=== PATIENT | female | born 1995 | race Caucasian/White ===

== ENCOUNTER 2019-12-17 22:03 | Emergency (ER) | payer MEDICAID ==
[~2019-12-17] VITALS: Ht 172.7 cm; Wt 77.1 kg
--- NOTE | 2019-12-17 22:05 | NUR ---
PT HERE C/O ALLERGIC REACTION TO MANY THINGS, C/O HIVES IN HER CHEST AND BODY PARTS HX- ALLERGIC TO CATS, DOGS, DUST, DOWNY SOAP PT TOOK 25 MG BENADRYL PO AT HOME AND ANOTHER 25 MG IV BY PARAMEDICS ON THE FIELD. PT C/O HIVES ON HER CHEST AND BODY. PT IS AAOX4.WITH HL INTACY BY PARAMEDICS ON PT LT ARM
[2019-12-17 22:08] VITALS: BP 123/81
--- NOTE | 2019-12-17 22:08 | NUR ---
24 YO F BIBA FOR C/C OF HIVES ALL OVER BODY X1 DAY. PT STATES SHE HAS ALOT OF ENVIRONMENTAL ALLERGIES AND WAS HELPING A FRIEND MOVE IN A GARAGE YESTERDAY WHEN THE HIVES STARTED TO DEVELOP. HIVES ARE HOT TO THE TOUCH. PT DENIES DIFFICULTY BREATHING OR SWALLOWING BUT STATES HER THROAT FEELS SCRATCHY AND FACE IS SWOLLEN. PT STATES SHE HAS BEEN TAKING BENADRYL PO AND RECIEVED 25 MG IVP IN ROUTE WITHOUT RELIEF OF SYMPTOMS. NKA TO MEDS ALLERGIES TO DUST, CHEMICAL DETERGENTS NO MED HX NO RX
--- NOTE | 2019-12-17 22:19 | NUR ---
ERM AT BEDSIDE
--- NOTE | 2019-12-17 22:27 | NUR ---
PT PLACED ON [employer] SPECIALIST
[2019-12-17] MEDS ORDERED: WATER STERILE 10 ML MC ONE (22:42)
[2019-12-17] MEDS ORDERED: methylPREDNISolone SS 125 MG/2 ML VIAL ONE (22:42)
[2019-12-17] MEDS: NACL 0.9% 1,000 ML IV ONE (22:45)
[2019-12-17] MEDS: diphenhydrAMINE 50 MG/ML VIAL IVP ONE (22:46)
[2019-12-17] MEDS: FAMOTIDINE 20 MG/2 ML VIAL IVP ONE (22:49)
[2019-12-17] MEDS: methylPREDNISolone SS 125 MG in WATER STERILE 2 ML IVP ONE (22:50)
--- NOTE | 2019-12-17 23:30 | NUR ---
PT RESTING IN BED IN POSITION OF COMFORT, BED LOW AND LOCKED, SIDRAILS UP, VSS, WILL CONTINUE TO MONITOR
[2019-12-18 00:34] VITALS: BP 123/81
--- NOTE | 2019-12-18 00:34 | NUR ---
Patient discharged with v/s stable. Written and verbal after care instructions given and explained. Patient alert, oriented and verbalized understanding of instructions. Ambulatory with steady gait. All questions addressed prior to discharge. ID band removed. Patient advised to follow up with PMD. Rx of DIPHENHYDRAMINE HYDROCHLORIDE/EPIPEN/PREDNISONE/PEPCID given. Patient educated on indication of medication including possible reaction and side effects. Opportunity to ask questions provided and answered.
== END 2019-12-18 00:34 | disposition home or self-care (01) ==
LOC: MED 22:03
DX: L50.0 Allergic urticaria (principal)
CPT/HCPCS: 96361; 96374; 96375; 99284; J1200; J2930; J3490; J7030

== ENCOUNTER 2021-05-25 00:35 | Emergency (ER) | payer SELFPAY ==
[~2021-05-25] VITALS: Ht 160 cm; Wt 93.0 kg
[2021-05-25 00:35] VITALS: BP 132/87
--- NOTE | 2021-05-25 00:38 | NUR ---
PT TAKEN TO LOBBY
[2021-05-25] MEDS ORDERED: HYDR-636 PO (01:28)
[2021-05-25] MEDS: HYDROXYZINE HYDROCHLORIDE 25 MG TAB PO ONE ×2 (01:35→02:02)
--- NOTE | 2021-05-25 01:59 | NUR ---
PT CLEARED FOR DISCHARGE BY DR. CABALLERO. PT UNABLE TO BE FOUND IN LOBBY OR OUTSIDE. PT LEFT FACILITY WITHOUT DISCHARGE INSTRUCTIONS.
== END 2021-05-25 01:59 | disposition home or self-care (01) ==
LOC: MED 00:35
DX: F41.0 Panic disorder [episodic paroxysmal anxiety] (principal)
CPT/HCPCS: 99283